=== PATIENT | female | born 1960 | race African-American/Black ===

== ENCOUNTER 2018-02-16 23:40 | Observation (INO) ==
[2018-02-17] MEDS ORDERED: Acetaminophen 500 MG Tablet PO PRN (04:32)
[2018-02-17] MEDS ORDERED: Morphine Sulfate Inj 2 MG/ML Vial IV.PUSH PRN (05:12)
[2018-02-17] MEDS: Morphine Sulfate Inj 2 MG/ML Vial IV.PUSH PRN ×2 (05:29→10:20)
[2018-02-17] MEDS ORDERED: Ketorolac Inj 30 MG/ML (IVP) Vial IV.PUSH ONE (09:08)
[2018-02-17] MEDS ORDERED: OLMESARTAN 40 MG PO SCH (09:15)
[2018-02-17] MEDS ORDERED: amLODIPine 5 MG Tablet PO SCH (09:15)
[2018-02-17] MEDS ORDERED: [UNRECOGNIZED DRUG - OTHER] PO SCH (09:15)
--- NOTE | 2018-02-17 10:12 | P.HPCA ---
History of Present Illness Primary Care Physician: Emmanuel Diaz Chief Complaint: Chest pain History of Present Illness: This is a 57-year-old female with history of hypertension and hyperlipidemia that presents to ED in [place] and then subsequently transferred to this chest pain center for further evaluation of her discomfort and she complains of having neck discomfort radiating to the right shoulder that has been intermittent for couple to 3 weeks. Symptoms worsened and did change also little bit. States the discomfort also began to radiate to right upper chest. Worsened with movements. Worsen when she takes in a big breath. She was short of breath even also. Currently chest pain has resolved but her neck still bothers her with movement. Cannot recall any trauma. Denies numbness tingling or weakness in extremities. Cannot recall prior cardiac workup. History of hypertension and hyperlipidemia. Denies diabetes or CAD. Non-smoker. Denies family history of CAD. - Diagnosis (1) Chest pain (2) Hypertension (3) Hyperlipidemia Review of Systems General: Patient denies fevers, chills, and recent travel. HEENT: Patient denies headache, sore throat, difficulty swallowing. Cardiovascular: Has the chest discomfort as mentioned above. Denies sensation of heart beating rapidly or irregularly. No syncope. Denies diaphoresis. Respiratory: She was short of breath last evening. She also states the discomfort was worsened when she took in a deep breath. Denies coughing wheezing or hemoptysis. GI: Patient denies nausea, vomiting, diarrhea, abdominal pain, bloody stools. Musculoskeletal: Patient denies joint pain or edema. Denies calf pain or edema. Neurovascular: Patient denies numbness, tingling, weakness in extremities. Denies headache. Endocrine: Denies polyuria and polydipsia. Hematologic: Denies easy bruising. Skin: Denies rash or itching. PMFSH - History History Provided By: Patient - Medical History Medical History: Medical History (Last Updated 02/16/18 @ 23:52 by Gin Barton RN) Depression FHx: hypercholesterolemia Hypertension - Surgical History Surgical History: Surgical History (Last Updated 02/16/18 @ 23:52 by Gin Barton RN) No history of previous surgery - Tobacco History Second Hand Smoke Exposure: No Smoking Status: Never smoker - Alcohol History How Often Do You Have a Drink Containing Alcohol: Never - Substance Use History Substance History: No History of Abuse - Travel History Recent Travel in the [place] Within the Last 8 Weeks: No Recent Travel Out of the Country Within the Last 8 Weeks: No Medications and Allergies Active Medications: Active Medications Acetaminophen (Tylenol) 500 mg PO Q4H PRN PRN Reason: HEADACHE Amlodipine Besylate (Norvasc) 5 mg PO DAILY [facility] Aspirin (Ecotrin) 81 mg PO DAILY [facility] Fluoxetine HCl (Prozac) 20 mg PO DAILY [facility] Morphine Sulfate (Morphine Inj) 2 mg IV.PUSH Q1H PRN PRN Reason: PAIN 7-10 Last Admin: 02/17/18 05:29 Dose: 2 mg Ondansetron HCl (Zofran Inj) 4 mg IV.PUSH Q6H PRN PRN Reason: NAUSEA Ptownmed (Olmesartan ([Benicar] 40 Mg)) 0 each PO DAILY [facility] Pravastatin Sodium (Pravachol) 40 mg PO DAILY [facility] Allergies Allergy/AdvReac Type Severity Reaction Status Date / Time No Known Allergies Allergy Verified 02/16/18 23:46 Home Medications Medication Instructions Recorded Confirmed Type fluoxetine [Prozac] 20 mg PO DAILY 02/16/18 02/17/18 History olmesartan [Benicar] 40 mg PO DAILY 02/16/18 02/17/18 History amlodipine 5 mg PO DAILY 02/17/18 02/17/18 History aspirin [Aspirin Low Dose] 81 mg PO DAILY 02/17/18 02/17/18 History pravastatin 40 mg PO DAILY 02/17/18 02/17/18 History Exam Vital signs: Vital Signs 02/17/18 04:00 02/17/18 04:40 02/17/18 05:31 Temperature 98.2 F Pulse Rate 65 66 Respiratory Rate 18 16 Blood Pressure 147/76 H Pulse Oximetry 97 02/17/18 08:00 Temperature 97.9 F Pulse Rate 61 Respiratory Rate 16 Blood Pressure 171/89 H Pulse Oximetry 99 Intake & Output 02/16/18 02/17/18 02/17/18 18:59 06:59 18:59 Weight 113.1 kg Other: Weight On Admission 113.1 kg Narrative: GENERAL: This is a well-nourished, well-developed patient, in no apparent distress. Patient speaks in clear complete sentences. Patient is pleasant. HEENT: Head is atraumatic and normocephalic. Neck is supple without lymphadenopathy and trachea is midline. No JVD or carotid bruits. CARDIOVASCULAR: Regular rate and rhythm without murmurs, gallops, or rubs. RESPIRATORY: Clear to auscultation. Breath sounds equal bilaterally. No wheezes , rales, or rhonchi. Right anterior wall is tender reproducing the same discomfort, also reproduced with movement of the right arm. No use of accessory muscles. GASTROINTESTINAL: Abdomen is nontender, nondistended. Abdomen soft. No obvious pulsatile mass or bruit. No CVA tenderness. Strong femoral pulses bilaterally. Normal bowel sounds in all quadrants. MUSCULOSKELETAL: Strong nutrition program instructor strength both hands. Patient is moving upper and lower extremities freely. No calf tenderness or edema, no Homans sign. Strong pulses in upper and lower extremities. NEUROLOGICAL: Patient is alert and oriented. Cranial nerves 2-12 are grossly intact. No focal deficits and speech is clear. SKIN: No rash and turgor is normal. Results Cardiac Enzymes 02/17/18 Range/Units 06:08 Troponin I Less than 0.02 L (0.02-0.05) ng/mL Intake and Output 02/16/18 02/17/18 02/17/18 22:59 06:59 14:59 Other: Weight 113.1 kg Weight On Admission 113.1 kg EKG interpretations - EKG EKG shows: sinus rhythm (Sinus rhythm without significant ST segment depressions or elevations.) Caprini VTE Risk Assessment Caprini VTE Risk Assessment: No/Low Risk (score <= 1) Caprini Risk Assessment Model: Point Value = 1 Point Value = 2 Point Value = 3 Point Value = 5 Age 41-60 Minor surgery BMI > 25 kg/m2 Swollen legs Varicose veins or History of unexplained or recurrent spontaneous Oral contraceptives or hormone replacement Sepsis (< 1 month) Serious lung disease, including pneumonia (< 1 month) Abnormal pulmonary function Acute myocardial infarction Congestive heart failure (< 1 month) History of inflammatory bowel disease Medical patient at bed rest Age 61-74 Arthroscopic surgery Major open surgery (> 45 min) Laparoscopic surgery (> 45 min) Malignancy Confined to bed (> 72 hours) Immobilizing plaster cast Central venous access Age >= 75 History of VTE Family history of VTE Factor V Leiden Prothrombin [id number] Lupus anticoagulant Anticardiolipin antibodies Elevated serum homocysteine Heparin-induced thrombocytopenia Other congenital or acquired thrombophilia Stroke (< 1 month) Elective arthroplasty Hip, pelvis, or leg fracture Acute spinal cord injury (< 1 month) Prophylaxis Regimen: Total Risk Factor Score Risk Level Prophylaxis Regimen 0-1 Low Early ambulation 2 Moderate Order ONE of the following: *Sequential Compression Device (SCD) *Heparin 5000 units SQ BID 3-4 Higher Order ONE of the following medications: *Heparin 5000 units SQ TID *Enoxaparin/Lovenox 40 mg SQ daily (WT < 150 kg, CrCl > 30 mL/min) *Enoxaparin/Lovenox 30 mg SQ daily (WT < 150 kg, CrCl > 10-29 mL/min) *Enoxaparin/Lovenox 30 mg SQ BID (WT < 150 kg, CrCl > 30 mL/min) AND/OR *Sequential Compression Device (SCD) 5 or more Highest Order ONE of the following medications: *Heparin 5000 units SQ TID (Preferred with Epidurals) *Enoxaparin/Lovenox 40 mg SQ daily (WT < 150 kg, CrCl > 30 mL/min) *Enoxaparin/Lovenox 30 mg SQ daily (WT < 150 kg, CrCl > 10-29 mL/min) *Enoxaparin/Lovenox 30 mg SQ BID (WT < 150 kg, CrCl > 30 mL/min) AND *Sequential Compression Device (SCD) Assessment and Plan - Assessment (1) Chest pain Code(s): R07.9 - Chest pain, unspecified Status: Acute (2) Hypertension Code(s): I10 - Essential (primary) hypertension Status: Acute (3) Hyperlipidemia Code(s): E78.5 - Hyperlipidemia, unspecified Status: Acute - Plan * Chest pain: Patient has had serial cardiac enzymes and EKGs for ruling out purposes. She will be seen by Dr. Holder of cardiology in the chest pain center. She will undergo a Lexiscan and will be discharged home if her stress test is nonischemic with instructions to follow-up with her PCP. * Hypertension: Continue medication. * Hyperlipidemia: Continue medication. Patient is stable at this time. She is agreeable to this plan. H&P: Quality - VTE Deep Vein Thrombosis/Pulmonary Embolism Present on Admission: No
[2018-02-17] MEDS ORDERED: Regadenoson Inj 0.4 MG/5 ML Syringe IV.PUSH ONE (11:13)
--- NOTE | 2018-02-17 11:39 | ECG ---
Date Performed: 02/16/2018 Time Performed: 23:48:20 PTAGE: 57 years EKG: Sinus rhythm MARKED LEFT AXIS DEVIATION LOW QRS VOLTAGE IN PRECORDIAL LEADS ABNORMAL ECG INTERPRETATION BASED ON A DEFAULT AGE OF 40 YEARS NO PREVIOUS TRACING DOCTOR: Ghanshyam Holder Interpretating Date/Time 02/17/2018 11:39:38
--- NOTE | 2018-02-17 11:46 | ECG ---
Date Performed: 02/17/2018 Time Performed: 05:38:43 PTAGE: 57 years EKG: SINUS BRADYCARDIA BORDERLINE LEFT AXIS DEVIATION BORDERLINE ECG Since PREVIOUS TRACING , no significant change noted DOCTOR: Ghanshyam Holder Interpretating Date/Time 02/17/2018 11:45:09
--- NOTE | 2018-02-17 13:21 | NM ---
EXAM DATE: 02/17/2018 1:05 PM EST AGE/SEX: 57 years / Female INDICATIONS:Angina. . Right sided chest pain for three weeks. CLINICAL DATA: This is the patient's initial encounter. Patient reports that signs and symptoms have been present for 1 day and indicates a pain score of 3/10. MEDICAL/SURGICAL HISTORY: Hypertension. Hysterectomy. COMPARISON: No prior exams available for comparison. No external comparison. DOSE: 11.0 mCi Tc 99m Myoview at rest 35.0 mCi [id number] at stress 0.4 mg Lexiscan STRESS SYMPTOMS: Flush. EJECTION FRACTION: 65 % TECHNIQUE: The patient underwent pharmacologic stress with infusion of prescribed dose. Continuous ECG tracing was monitored during stress. Gated SPECT imaging was performed after stress and conventi onal SPECT imaging was performed at rest. The examination was performed on a SPECT/CT scanner, both attenuation and non-corrected datasets were reviewed. FINDINGS: Distribution: The maximum perfused segment at stress is in the anterolateral wall. Perfusion Study: The pattern of perfusion at stress is within normal limits. Gated Study: There are intact wall motion and wall thickening without hypokinetic or dyskinetic segm ents. The ejection fraction is calculated at 65%. RISK CATEGORY: Low (<1% Annual Motality Rate) CONCLUSION: 1. No significant reversibility to suggest ischemia. 2. Normal wall motion with ejection fraction 65%. Electronically signed by: Joe Dominguez MD 02/17/2018 1:20 PM EST
[2018-02-18] MEDS ORDERED: FLUoxetine 20 MG Capsule PO SCH (09:00)
--- NOTE | 2018-02-19 07:25 | TR ---
Date Performed: 02/17/2018 Time Performed: 11:52:19 DOCTOR: Mindy De Oliveira DRUG LIST: CLINICAL HISTORY: ANGINA REASON FOR TEST: Angina REASON FOR ENDING: OBSERVATION: CONCLUSION: Lexiscan stress test was performed under standard four minute protocol. Radionuclid e was injected one minute prior to ending the test. No electrocardiographic abormalities were present to suggest ischemia. Nuclear imaging and interpretation are pending. COMMENTS: Lexiscan stress test was performed under standard four minute protocol. Radionuclide was injected one minute prior to ending the test. No electrocardiographic abormalities were present t o suggest ischemia. Nuclear imaging and interpretation are pending.
== END 2018-02-17 15:07 | disposition home or self-care (01) ==
LOC: NEPHCDU 23:40 → NEDDLT 23:40